=== PATIENT | male | born 1985 | race Caucasian/White ===

== ENCOUNTER → 2017-02-21 | Outpatient (REF) | payer OTHER ==
[2017-02-21 18:06] LABS: GAMMA GLUTAMYLTRANSPEPTIDASE 90 U/L (15-85)
[2017-02-28 10:15] LABS: FREE T4 BY DIALYSIS DIRECT 0.63 ng/dL (.)
== END ==
LOC: M SFHCPLAZ 14:08
PROVIDERS: ATTEND Nurse Practitioner Family
DX: R79.89 Other specified abnormal findings of blood chemistry (principal); R94.6 Abnormal results of thyroid function studies

== ENCOUNTER → 2017-03-06 | Outpatient (CLI) | payer OTHER ==
--- NOTE | 2017-03-07 08:47 | REP ---
Clinical: Elevated liver function tests. Technique: Real time nicholas scale ultrasound examination using curved array transducer. Findings: The liver demonstrates increased echogenicity consistent with fatty infiltration and 9 mm hypoechoic nodule in the posterior segment right lobe which is otherwise nonspecific by current ultrasound. Pancreas is incompletely evaluated due to interposed bowel gas. Gallbladder demonstrates multiple gallstones without wall thickening or pericholecystic fluid. No biliary ductal dilatation is appreciated and the common bile duct measures 4.1 mm diameter. The right kidney is normal in reniform shape without hydronephrosis and measures 12.6 x 5.4 x 5.5 cm. Impression: 1. Fatty infiltration to the liver with 9 mm nodule nonspecific by ultrasound. Consider routine annual follow-up by ultrasound or pre and postcontrast CT of the abdomen and pelvis for more definitive evaluation. 2. Normal gallbladder and biliary system. Normal right kidney. Signed by Shawn Galeana MD 03/07/2017 08:38 A
== END ==
LOC: M RAD 07:52
PROVIDERS: ATTEND Nurse Practitioner Family
DX: K76.0 Fatty (change of) liver, not elsewhere classified (principal); K76.89 Other specified diseases of liver

== ENCOUNTER → 2017-03-20 | Outpatient (CLI) | payer OTHER ==
[~2017-03-20] MED LIST: GASTROGRAFIN SOLUTION 30ML (Q9963) As Ordered ONE; ISOVUE-370 76% 100ML VIAL (Q9967) As Ordered ONE
--- NOTE | 2017-03-20 16:25 | REP ---
Clinical: Liver nodule by ultrasound. Technique: Axial contrast enhanced images from the lung bases to the pubic symphysis using oral and 100 ml Isovue 370 intravenous contrast material with precontrast images of the abdomen as well as coronal and sagittal re-formations. Comparison: Ultrasound dated 03/06/2017. Findings: Lung bases are clear. Visualized heart and pericardium normal. The liver is unremarkable and the subcentimeter nodule in the right lobe by ultrasound is not visualized on CT. Cholelithiasis noted. Spleen, pancreas, bilateral adrenal glands and kidneys are normal. The enteric system is without obstruction or acute inflammatory process. Sigmoid diverticula noted without acute diverticulitis. Oval terminal ileum and appendix identified in the right lower quadrant. Pelvis demonstrates normal bladder and age appropriate prostate/seminal vesicles. No free air. No free fluid. No adenopathy. Vasculature normal. Surrounding musculoskeletal structures are normal. Impression: 1. The subcentimeter liver nodule on ultrasound is not visualized by CT and likely represents incidental finding. Consider 6-month follow-up by ultrasound. 2. Cholelithiasis without CT evidence for acute cholecystitis. 3. Diverticulosis without acute diverticulitis. Signed by Shawn Galeana MD 03/20/2017 04:17 P
== END ==
LOC: M RAD 13:47
PROVIDERS: ATTEND Nurse Practitioner Family
DX: K76.89 Other specified diseases of liver (principal); K57.30 Diverticulosis of large intestine without perforation or abscess without bleeding; K80.20 Calculus of gallbladder without cholecystitis without obstruction

== ENCOUNTER 2018-04-08 14:49 | Emergency (ER) | payer OTHER, BC ==
[2018-04-08] MEDS: PERCOCET 5MG/325MG TAB PO (15:53)
== END 2018-04-08 17:14 | disposition home or self-care (01) ==
LOC: M ED 14:49
DX: S42.102A Fracture of unspecified part of scapula, left shoulder, initial encounter for closed fracture (principal); S70.10XA Contusion of unspecified thigh, initial encounter; W11.XXXA Fall on and from ladder, initial encounter; Y92.098 Other place in other non-institutional residence as the place of occurrence of the external cause; I10 Essential (primary) hypertension; Z88.0 Allergy status to penicillin; Z88.2 Allergy status to sulfonamides; Z79.899 Other long term (current) drug therapy
CPT/HCPCS: 71101

== ENCOUNTER → 2018-04-08 | Outpatient (CLI) | payer OTHER | LOC: M LRY 13:00 | DX: S42.115A Nondisplaced fracture of body of scapula, left shoulder, initial encounter for closed fracture (principal); X58.XXXA Exposure to other specified factors, initial encounter; Y92.9 Unspecified place or not applicable | CPT/HCPCS: 73010 ==

== ENCOUNTER → 2018-04-16 | Outpatient (REF) | payer OTHER ==
[2018-04-16 16:11] LABS: HEMATOCRIT 45.5 % (42.0-52.0); HEMOGLOBIN 15.5 g/dl (13.5-17.5)
[2018-04-16 16:41] LABS: TESTOSTERONE 450 NG/DL (241-827)
[2018-04-16 16:41] LABS: TOTAL 25(OH) VITAMIN D 13.8 NG/ML (30.0-100.0)
== END ==
LOC: M LABDRAW1 15:47
DX: E29.1 Testicular hypofunction (principal); E55.9 Vitamin D deficiency, unspecified
CPT/HCPCS: 84403

== ENCOUNTER → 2018-10-01 | Outpatient (REF) | payer BC, OTHER ==
[~2018-10-01] MED LIST changes: -GASTROGRAFIN SOLUTION 30ML (Q9963) As Ordered ONE; -ISOVUE-370 76% 100ML VIAL (Q9967) As Ordered ONE; +PERC5TAB12 PO; +TEST200I14
[2018-10-01 18:52] LABS: TOTAL 25(OH) VITAMIN D 18.4 NG/ML (30.0-100.0)
[2018-10-01 18:59] LABS: HEMATOCRIT 48.4 % (42.0-52.0); HEMOGLOBIN 16.3 g/dl (13.5-17.5)
== END ==
LOC: M LABDRAW1 17:29
PROVIDERS: ATTEND Nurse Practitioner Family
DX: E29.1 Testicular hypofunction (principal); E55.9 Vitamin D deficiency, unspecified
CPT/HCPCS: 36415; 82306; 84403; 85014; 85018; G0103

== ENCOUNTER → 2019-03-06 | Outpatient (CLI) | payer BC, OTHER ==
[2019-03-06 12:23] LABS: ALBUMIN 4.1 GM/DL (3.2-5.2); ALT/SGPT 55 U/L (12-78); BILIRUBIN,TOTAL 0.7 MG/DL (0.2-1.0); BLOOD UREA NITROGEN 17 MG/DL (7-18); CALCIUM LEVEL 9.3 MG/DL (8.5-10.1); CARBON DIOXIDE LEVEL 28 MEQ/L (21-32); CHLORIDE LEVEL 104 MEQ/L (98-107); CHOLESTEROL LEVEL 241 MG/DL (<200); CHOLESTEROL RISK RATIO 4.918 (<5); CREATININE FOR GFR 1.08 MG/DL (0.70-1.30); GLOMERULAR FILTRATION RATE > 60.0 (>60); GLUCOSE, FASTING 90 MG/DL (70-100); HDL CHOLESTEROL 49 MG/DL (>40); LDL CHOLESTEROL 163 MG/DL (<100); NON-HDL-C 192 MG/DL; POTASSIUM SERUM 4.3 MEQ/L (3.5-5.1); SODIUM LEVEL 139 MEQ/L (136-145); TOTAL PROTEIN 7.5 GM/DL (6.4-8.2); TRIGLYCERIDES LEVEL 147 MG/DL (<150)
== END ==
LOC: M LAB 10:50
PROVIDERS: ATTEND Nurse Practitioner Family
DX: Z00.00 Encounter for general adult medical examination without abnormal findings (principal); K76.0 Fatty (change of) liver, not elsewhere classified; E78.5 Hyperlipidemia, unspecified

== ENCOUNTER → 2019-03-11 | Outpatient (CLI) | payer BC, OTHER ==
--- NOTE | 2019-03-11 07:14 | REP ---
Clinical: Hepatic steatosis with nonspecific liver nodule. Technique: Real time nicholas scale found examination using curved array transducer. Comparison: Ultrasound dated 03/06/2017, CT dated 03/20/2017. Findings: The liver demonstrates normal parenchymal echo texture and contour and the previously identified subcentimeter nodule surrounded by fatty infiltration may have represented focal fatty sparing. No hepatic mass lesions or abnormality identified. Pancreas is normal in appearance. The gallbladder demonstrates multiple gallstones without wall thickening or pericholecystic fluid. No biliary ductal dilatation is appreciated and the common bile duct measures 4.2 mm diameter. Right kidney is normal in reniform shape and echotexture without hydronephrosis or nephrolithiasis and measures 12.0 x 6.1 x 4.4 cm. Visualized portions of the abdominal aorta are normal. No ascites. Impression: 1. Previously noted fatty infiltration to the liver and nonspecific subcentimeter nodule have resolved and the finding on prior examination may have represented small area of focal fatty sparing surrounded by transient fatty infiltration. 2. Cholelithiasis again noted without evidence for acute cholecystitis. Electronically Signed by Shawn Galeana MD 03/11/2019 07:05 A
== END ==
LOC: M RAD 05:57
PROVIDERS: ATTEND Nurse Practitioner Family
DX: K76.89 Other specified diseases of liver (principal); K76.0 Fatty (change of) liver, not elsewhere classified

== ENCOUNTER → 2019-05-05 | Outpatient (CLI) | payer BC, OTHER ==
[2019-05-05 06:52] LABS: HEMATOCRIT 46.9 % (42.0-52.0); HEMOGLOBIN 15.9 g/dl (13.5-17.5)
[2019-05-05 09:02] LABS: TOTAL 25(OH) VITAMIN D 21.1 NG/ML (30.0-100.0)
== END ==
LOC: M LAB 06:07
PROVIDERS: ATTEND Nurse Practitioner Family
DX: E29.1 Testicular hypofunction (principal); E55.9 Vitamin D deficiency, unspecified

== ENCOUNTER → 2019-11-13 | Outpatient (CLI) | payer BC ==
[2019-11-13 09:32] LABS: HEMATOCRIT 46.8 % (42.0-52.0); HEMOGLOBIN 15.8 g/dl (13.5-17.5)
[2019-11-15 09:49] LABS: TOTAL 25(OH) VITAMIN D 14.1 NG/ML (30.0-100.0)
== END ==
LOC: M LAB 08:34
PROVIDERS: ATTEND Nurse Practitioner Family
DX: E29.1 Testicular hypofunction (principal)
CPT/HCPCS: 36415; 82306; 84403; 85014; 85018; G0103

== ENCOUNTER → 2020-04-22 | Outpatient (CLI) | payer BC ==
[2020-06-03 21:46] LABS: HEMATOCRIT 49.9 % (42.0-52.0); HEMOGLOBIN 16.9 g/dl (13.5-17.5)
[2020-06-05 15:56] LABS: TOTAL 25(OH) VITAMIN D 25.6 NG/ML (30.0-100.0)
== END ==
LOC: M LAB 08:35
PROVIDERS: ATTEND Nurse Practitioner Family
DX: E29.1 Testicular hypofunction (principal); E55.9 Vitamin D deficiency, unspecified

== ENCOUNTER → 2020-04-22 | Outpatient (CLI) | payer BC ==
[2020-05-29 09:04] LABS: ALBUMIN 4.6 GM/DL (3.2-5.2); ALT/SGPT 84 U/L (12-78); BILIRUBIN,TOTAL 0.5 MG/DL (0.2-1.0); BLOOD UREA NITROGEN 13 MG/DL (7-18); CALCIUM LEVEL 9.4 MG/DL (8.5-10.1); CARBON DIOXIDE LEVEL 30 MEQ/L (21-32); CHLORIDE LEVEL 104 MEQ/L (98-107); CREATININE FOR GFR 1.18 MG/DL (0.70-1.30); GLOMERULAR FILTRATION RATE > 60.0 (>60); GLUCOSE, FASTING 100 MG/DL (70-100); POTASSIUM SERUM 4.4 MEQ/L (3.5-5.1); SODIUM LEVEL 137 MEQ/L (136-145); TOTAL PROTEIN 7.8 GM/DL (6.4-8.2)
== END ==
LOC: M LAB 08:25
PROVIDERS: ATTEND Physician Assistant
DX: K76.0 Fatty (change of) liver, not elsewhere classified (principal)

== ENCOUNTER → 2020-11-11 | Outpatient (CLI) | payer BC ==
[2020-11-11 10:04] LABS: HEMATOCRIT 46.8 % (42.0-52.0); HEMOGLOBIN 15.7 g/dl (13.5-17.5)
[2020-11-13 11:20] LABS: TOTAL 25(OH) VITAMIN D 12.2 NG/ML (30.0-100.0)
== END ==
LOC: M LAB 09:34
PROVIDERS: ATTEND Nurse Practitioner Family
DX: E29.1 Testicular hypofunction (principal); E55.9 Vitamin D deficiency, unspecified
CPT/HCPCS: 36415; 82306; 84403; 85014; 85018; G0103

== ENCOUNTER → 2021-01-27 | Outpatient (CLI) | payer BC ==
[2021-01-27 10:28] LABS: HEMATOCRIT 48.6 % (42.0-52.0); HEMOGLOBIN 16.8 g/dl (13.5-17.5)
== END ==
LOC: M LAB 09:21
PROVIDERS: ATTEND Nurse Practitioner Family
DX: E29.1 Testicular hypofunction (principal)

== ENCOUNTER → 2021-02-10 | Outpatient (CLI) | payer BC ==
[2021-02-10 14:05] LABS: FREE T4 0.65 NG/DL (0.76-1.46); THYROID STIMULATING HORMONE 0.378 uIU/ML (0.358-3.740)
== END ==
LOC: M LAB 13:10
PROVIDERS: ATTEND Nurse Practitioner Family
DX: E29.1 Testicular hypofunction (principal)

== ENCOUNTER → 2021-07-21 | Outpatient (CLI) | payer BC ==
[2021-07-21 10:43] LABS: FREE T4 0.8 NG/DL (0.76-1.46); THYROID STIMULATING HORMONE 0.663 uIU/ML (0.358-3.740)
== END ==
LOC: M LAB 09:43
PROVIDERS: ATTEND Nurse Practitioner Family
DX: R94.6 Abnormal results of thyroid function studies (principal)

== ENCOUNTER → 2021-07-28 | Outpatient (CLI) | payer BC ==
[2021-07-28 10:34] LABS: HEMATOCRIT 47.5 % (42.0-52.0); HEMOGLOBIN 16.3 g/dl (13.5-17.5)
== END ==
LOC: M LAB 09:52
PROVIDERS: ATTEND Nurse Practitioner Family
DX: E29.1 Testicular hypofunction (principal)

== ENCOUNTER → 2022-07-06 | Outpatient (CLI) | payer BC ==
[2022-07-06 10:22] LABS: HEMATOCRIT 48.1 % (42.0-52.0); HEMOGLOBIN 16.2 g/dl (13.5-17.5)
[2022-07-08 11:09] LABS: TOTAL 25(OH) VITAMIN D 28.8 NG/ML (30.0-100.0)
== END ==
LOC: M LAB 09:50
PROVIDERS: ATTEND Nurse Practitioner Family
DX: E29.1 Testicular hypofunction (principal); E55.9 Vitamin D deficiency, unspecified

== ENCOUNTER → 2022-12-14 | Outpatient (CLI) | payer BC ==
[2022-12-14 09:50] LABS: HEMOGLOBIN A1c 5.6 % (4.0-6.0)
[2022-12-14 10:39] LABS: ALBUMIN 4.3 G/DL (3.2-5.2); ALKALINE PHOSPHATASE 73 U/L (46-116); ALT/SGPT 68 U/L (7.0-40); AST/SGOT 31 U/L (<34); BILIRUBIN,TOTAL 0.7 MG/DL (0.3-1.2); BLOOD UREA NITROGEN 15 MG/DL (9-23); CALCIUM LEVEL 9.3 MG/DL (8.5-10.1); CARBON DIOXIDE LEVEL 28 MMOL/L (20-31); CHLORIDE LEVEL 104 MMOL/L (98-107); CHOLESTEROL LEVEL 223 MG/DL (<200); CHOLESTEROL RISK RATIO 3.48 (<5); CREATININE FOR GFR 1.01 MG/DL (0.70-1.30); GLOMERULAR FILTRATION RATE > 60.0 (>60); GLUCOSE, FASTING 104 MG/DL (60-100); LDL CHOLESTEROL 135.6 MG/DL (<100); POTASSIUM SERUM 4.5 MMOL/L (3.5-5.1); SODIUM LEVEL 138 MMOL/L (136-145); TOTAL 25(OH) VITAMIN D 24.8 NG/ML (20.0-100.0); TOTAL PROTEIN 6.9 G/DL (5.7-8.2); TRIGLYCERIDES LEVEL 117 MG/DL (<150)
== END ==
LOC: M LAB 08:41
PROVIDERS: ATTEND Nurse Practitioner Family
DX: E78.5 Hyperlipidemia, unspecified (principal)

== ENCOUNTER → 2022-12-14 | Outpatient (CLI) | payer BC ==
[2022-12-14 09:38] LABS: HEMATOCRIT 46.1 % (42.0-52.0); HEMOGLOBIN 15.6 g/dl (13.5-17.5)
[2022-12-14 10:06] LABS: TOTAL 25(OH) VITAMIN D 20.9 NG/ML (20.0-100.0)
== END ==
LOC: M LAB 08:44
PROVIDERS: ATTEND Nurse Practitioner Family
DX: E29.1 Testicular hypofunction (principal)

== ENCOUNTER → 2023-06-05 | Outpatient (CLI) | payer BC ==
[2023-06-05 08:35] LABS: HEMATOCRIT 50.6 % (42.0-52.0); HEMOGLOBIN 17.3 g/dl (13.5-17.5)
== END ==
LOC: M LAB 07:49
PROVIDERS: ATTEND Nurse Practitioner Family
DX: E29.1 Testicular hypofunction (principal)
CPT/HCPCS: 36415; 84403; 85014; 85018; G0103

== ENCOUNTER → 2023-08-21 | Outpatient (CLI) | payer BC ==
[2023-08-21 07:42] LABS: HEMATOCRIT 49.2 % (42.0-52.0); HEMOGLOBIN 16.9 g/dl (13.5-17.5)
== END ==
LOC: M LAB 06:19
PROVIDERS: ATTEND Nurse Practitioner Family
DX: E29.1 Testicular hypofunction (principal)

== ENCOUNTER → 2024-03-25 | Outpatient (CLI) | payer BC ==
[2024-03-25 06:56] LABS: HEMATOCRIT 49.4 % (42.0-52.0); HEMOGLOBIN 16.9 g/dl (13.5-17.5)
[2024-03-25 07:19] LABS: PSA SCREENING 0.69 NG/ML (< 4.00)
== END ==
LOC: M LAB 06:19
PROVIDERS: ATTEND Nurse Practitioner Family
DX: E29.1 Testicular hypofunction (principal)
CPT/HCPCS: 36415; 84403; G0103

== ENCOUNTER → 2024-03-25 | Outpatient (CLI) | payer BC ==
[2024-03-25 06:54] LABS: BASO # 0.1 10^3/uL (0.0-0.2); EOS # 0.1 10^3/uL (0.0-0.5); EOS % 1.5 % (0.0-3.0); HEMATOCRIT 49.3 % (42.0-52.0); HEMOGLOBIN 17.1 g/dl (13.5-17.5); LYMPH % 28.7 % (24.0-44.0); MEAN CORPUSCULAR HEMOGLOBIN 31.3 pg (27.0-33.0); MEAN CORPUSCULAR HGB CONC 34.7 g/dl (32.0-36.5); MEAN CORPUSCULAR VOLUME 90.1 fl (80.0-96.0); MONO # 0.5 10^3/uL (0.0-0.8); MONO % 6.5 % (2.0-8.0); NEUTROPHILS # 4.4 10^3/uL (1.5-8.5); NEUTROPHILS % 61.6 % (36.0-66.0); PLATELET COUNT, AUTOMATED 267 10^3/uL (150-450); RED BLOOD COUNT 5.47 10^6/uL (4.30-6.10); WHITE BLOOD COUNT 7.1 10^3/uL (4.0-10.0)
[2024-03-25 07:03] LABS: HEMOGLOBIN A1c 5.7 % (4.0-6.0)
[2024-03-25 07:21] LABS: ALBUMIN 4.3 G/DL (3.2-5.2); ALKALINE PHOSPHATASE 79 U/L (46-116); ALT/SGPT 90 U/L (7.0-40); AST/SGOT 42 U/L (<34); BILIRUBIN,TOTAL 0.8 MG/DL (0.3-1.2); BLOOD UREA NITROGEN 13 MG/DL (9-23); CALCIUM LEVEL 9.8 MG/DL (8.5-10.1); CARBON DIOXIDE LEVEL 27 MMOL/L (20-31); CHLORIDE LEVEL 105 MMOL/L (98-107); CHOLESTEROL LEVEL 281 MG/DL (<200); CHOLESTEROL RISK RATIO 5.81 (<5); CREATININE FOR GFR 1.01 MG/DL (0.70-1.30); GLOMERULAR FILTRATION RATE > 60.0 (>60); GLUCOSE, FASTING 120 MG/DL (60-100); HDL CHOLESTEROL 48.3 MG/DL (>40); LDL CHOLESTEROL 185.3 MG/DL (<100); NON-HDL-C 232.7 MG/DL; POTASSIUM SERUM 4.5 MMOL/L (3.5-5.1); SODIUM LEVEL 138 MMOL/L (136-145); TOTAL PROTEIN 7.1 G/DL (5.7-8.2); TRIGLYCERIDES LEVEL 237 MG/DL (<150)
[2024-03-25 07:23] LABS: TOTAL 25(OH) VITAMIN D 18.6 NG/ML (20.0-100.0)
== END ==
LOC: M LAB 06:21
PROVIDERS: ATTEND Nurse Practitioner Family
DX: Z00.01 Encounter for general adult medical examination with abnormal findings (principal); K76.0 Fatty (change of) liver, not elsewhere classified; E55.9 Vitamin D deficiency, unspecified; E78.5 Hyperlipidemia, unspecified; Z13.1 Encounter for screening for diabetes mellitus

== ENCOUNTER → 2024-10-01 | Outpatient (CLI) | payer BC ==
[2024-10-01 06:56] LABS: HEMATOCRIT 51.1 % (42.0-52.0); HEMOGLOBIN 17.2 g/dl (13.5-17.5)
[2024-10-01 07:24] LABS: TOTAL 25(OH) VITAMIN D 9.8 NG/ML (20.0-100.0)
== END ==
LOC: M LAB 06:12
PROVIDERS: ATTEND Nurse Practitioner Family
DX: E29.1 Testicular hypofunction (principal); E55.9 Vitamin D deficiency, unspecified

== ENCOUNTER → 2024-10-01 | Outpatient (CLI) | payer BC ==
[2024-10-01 07:22] LABS: ALBUMIN 4.3 G/DL (3.2-5.2); ALKALINE PHOSPHATASE 86 U/L (40-129); ALT/SGPT 80 U/L (7.0-40); AST/SGOT 30 U/L (<34); BLOOD UREA NITROGEN 11 MG/DL (9-23); CALCIUM LEVEL 10.4 MG/DL (8.5-10.1); CARBON DIOXIDE LEVEL 30 MMOL/L (20-31); CHLORIDE LEVEL 101 MMOL/L (98-107); CHOLESTEROL LEVEL 168 MG/DL (<200); CHOLESTEROL RISK RATIO 3.08 (<5); CREATININE FOR GFR 1.07 MG/DL (0.70-1.30); GLOMERULAR FILTRATION RATE > 60.0 (>60); GLUCOSE, FASTING 120 MG/DL (60-100); HDL CHOLESTEROL 54.5 MG/DL (>40); LDL CHOLESTEROL 86.1 MG/DL (<100); NON-HDL-C 113.5 MG/DL; POTASSIUM SERUM 4.3 MMOL/L (3.5-5.1); SODIUM LEVEL 139 MMOL/L (136-145); TOTAL PROTEIN 7.4 G/DL (5.7-8.2); TRIGLYCERIDES LEVEL 137 MG/DL (<150)
== END ==
LOC: M LAB 06:14
PROVIDERS: ATTEND Nurse Practitioner Family
DX: E78.5 Hyperlipidemia, unspecified (principal); K76.0 Fatty (change of) liver, not elsewhere classified

== ENCOUNTER → 2025-04-01 | Outpatient (CLI) | payer BC ==
[2025-04-01 07:40] LABS: PSA SCREENING 0.87 NG/ML (< 4.00)
[2025-04-01 07:45] LABS: TESTOSTERONE 419.0 NG/DL (241-827); TOTAL 25(OH) VITAMIN D 39.4 NG/ML (20.0-100.0)
== END ==
LOC: M LAB 06:22
PROVIDERS: ATTEND Nurse Practitioner Family
DX: E29.1 Testicular hypofunction (principal); E55.9 Vitamin D deficiency, unspecified
CPT/HCPCS: 36415; 82306; 84403; 85014; 85018; G0103

== ENCOUNTER → 2025-05-18 | Outpatient (CLI) | payer BC ==
[2025-05-18 07:05] LABS: BASO # 0.1 10^3/uL (0.0-0.2); BASO % 0.7 % (0.0-1.0); EOS # 0.1 10^3/uL (0.0-0.5); EOS % 1.3 % (0.0-3.0); LYMPH # 2.5 10^3/uL (1.5-5.0); LYMPH % 33.1 % (24.0-44.0); MONO # 0.5 10^3/uL (0.0-0.8); MONO % 7.0 % (2.0-8.0); NEUTROPHILS # 4.3 10^3/uL (1.5-8.5); NEUTROPHILS % 57.4 % (36.0-66.0); PLATELET COUNT, AUTOMATED 286 10^3/uL (150-450)
[2025-05-18 07:28] LABS: ESTIMATED AVERAGE GLUCOSE 126.0 MG/DL (60-110)
[2025-05-18 07:49] LABS: ALT/SGPT 71.0 U/L (7.0-40); AST/SGOT 37.0 U/L (<34); CALCIUM LEVEL 9.9 MG/DL (8.5-10.1); CARBON DIOXIDE LEVEL 28.0 MMOL/L (20-31); CHLORIDE LEVEL 104.0 MMOL/L (98-107); CHOLESTEROL LEVEL 185.0 MG/DL (<200); CHOLESTEROL RISK RATIO 4.01 (<5); CREATININE FOR GFR 1.2 MG/DL (0.70-1.30); GLOMERULAR FILTRATION RATE 77.4 (>60); LDL CHOLESTEROL 90.1 MG/DL (<100); MAGNESIUM LEVEL 2.1 MG/DL (1.8-2.4); NON-HDL-C 138.9 MG/DL; POTASSIUM SERUM 4.6 MMOL/L (3.5-5.1); SODIUM LEVEL 141.0 MMOL/L (136-145); TRIGLYCERIDES LEVEL 244.0 MG/DL (<150)
[2025-05-18 07:51] LABS: FREE T4 0.97 NG/DL (0.89-1.76)
== END ==
LOC: M LAB 06:16
PROVIDERS: ATTEND Nurse Practitioner Family
DX: R53.83 Other fatigue (principal); I10 Essential (primary) hypertension; E55.9 Vitamin D deficiency, unspecified; R73.01 Impaired fasting glucose